=== PATIENT | female | born 1965 | race Caucasian/White ===

== ENCOUNTER 2023-09-29 08:16 | Day surgery (SDC) | payer OTHER ==
[2023-09-29] MEDS ORDERED: Depo-Medrol 40 MG/ML IM ONE ×2 (08:17)
[2023-09-29] MEDS ORDERED: DIPRIVAN 200 MG/20 ML IV ONE (10:31)
--- NOTE | 2023-09-29 11:56 | XRAY ---
Indication: Left knee injection. Intraoperative fluoroscopy provided for 13 seconds. Single digital spot image submitted for interpretation demonstrates needle tip projecting over the left femur intercondylar notch. Small amount of contrast injected for needle tip placement. Correlate with intraoperative findings/report.
--- NOTE | 2023-09-29 11:56 | XRAY ---
Indication: Right knee injection. Intraoperative fluoroscopy provided for 14 seconds. Single digital spot image submitted for interpretation demonstrates needle tip projecting over the right femur intercondylar notch. Small amount of contrast injected for needle tip placement. Correlate with intraoperative findings/report.
[2023-09-29] MEDS ORDERED: Lactated Ringers 1,000 ML IV ONE (12:13)
--- NOTE | 2023-09-29 12:54 | XRAY ---
14 seconds of fluoroscopy was used in surgery for a right intra-articular knee injection.
--- NOTE | 2023-09-29 12:55 | XRAY ---
13 seconds of fluoroscopy was used in surgery for a left intra-articular knee injection.
== END 2023-09-29 11:05 | disposition home or self-care (01) ==
LOC: SDC-PAIN 08:16
PROVIDERS: ATTEND Psychiatry & Neurology Pain Medicine
DX: M17.0 Bilateral primary osteoarthritis of knee (principal); E11.9 Type 2 diabetes mellitus without complications
CPT/HCPCS: 20610; 73560; 77002; 82947; J1010; J2704; Q9966

== ENCOUNTER 2024-02-16 07:20 | Day surgery (SDC) | payer OTHER ==
[2024-02-16] MEDS ORDERED: Xylocaine-Mpf 2% 5 Ml Vial IJ ONE (07:21)
[2024-02-16] MEDS ORDERED: DIPRIVAN 200 MG/20 ML IV ONE (08:58)
--- NOTE | 2024-02-16 10:14 | XRAY ---
Indication: Bilateral L4-S1 MBB. Intraoperative fluoroscopy provided for 15 seconds. Single digital spot image submitted for interpretation demonstrates posterior needle tips projecting over the expected left and right L4-S1 nerve root. Correlate with intraoperative findings/report.
--- NOTE | 2024-02-16 11:46 | XRAY ---
15 seconds of fluoroscopy was used in surgery for a bilateral L4-S1 MBB.
== END 2024-02-16 09:30 | disposition home or self-care (01) ==
LOC: SDC-PAIN 07:20
PROVIDERS: ATTEND Psychiatry & Neurology Pain Medicine
DX: M47.816 Spondylosis without myelopathy or radiculopathy, lumbar region (principal); E11.9 Type 2 diabetes mellitus without complications
CPT/HCPCS: 72020; 77002; 82947; J2704

== ENCOUNTER 2024-04-20 08:01 | Day surgery (SDC) | payer OTHER ==
[2024-04-20] MEDS ORDERED: LIDOCAINE HCL 1% 50 MG/5 ML VL IJ ONE (08:02)
[2024-04-20] MEDS ORDERED: methylPREDNISolone acetate IM ONE (08:02)
[2024-04-20] MEDS ORDERED: BUPIVACAINE 0.5% VIAL IJ ONE (08:02)
[2024-04-20] MEDS ORDERED: propofoL IV ONE ×2 (09:43→09:52)
--- NOTE | 2024-04-20 10:09 | XRAY ---
Indication: Bilateral L4-S1 MBB. Intraoperative fluoroscopy provided for 10 seconds. Single digital spot image submitted for interpretation demonstrates posterior needle tips projecting over the expected left and right L4-S1 nerve roots. Correlate with intraoperative findings/report.
--- NOTE | 2024-04-20 10:13 | XRAY ---
10 seconds of fluoroscopy was used in surgery for a bilateral L4-S1 MBB.
== END 2024-04-20 10:17 | disposition home or self-care (01) ==
LOC: SDC-PAIN 08:01
PROVIDERS: ATTEND Psychiatry & Neurology Pain Medicine
DX: M47.816 Spondylosis without myelopathy or radiculopathy, lumbar region (principal); E11.9 Type 2 diabetes mellitus without complications
CPT/HCPCS: 64493; 64494; 72020; 77002; 82947; J1010; J2704

== ENCOUNTER 2024-06-07 06:43 | Day surgery (SDC) | payer OTHER ==
[2024-06-07] MEDS ORDERED: Lactated Ringers 500 ML IV ONE (07:13)
[2024-06-07] MEDS ORDERED: propofoL IV ONE ×2 (07:52→09:30)
[2024-06-07 07:54] LABS: Absolute Neutrophil Ct (ANC) 2.52 x10^3/uL (1.56-6.13); BASOPHIL % 0.5 % (0.1-1.2); Basophil (Absolute #) 0.02 x10^3/uL (0.01-0.08); Eosinophil (Absolute #) 0.04 x10^3/uL (0.04-0.36); Hematocrit 43.9 % (34.1-44.9); Hemoglobin 15.8 g/dL (11.2-15.7); IMMATURE GRAN # 0.01 x10^3u/L (0.001-0.031); IMMATURE GRAN % 0.3 % (0.001-0.429); Lymphocyte (Absolute #) 0.96 x10^3/uL (1.18-3.74); Lymphocytes % 24.1 % (19.3-51.7); Mean Cell Volume 88.9 fL (79.4-94.8); Mean Platelet Volume 12.1 fL (9.4-12.3); Monocyte (Absolute #) 0.44 x10^3/uL (0.24-0.86); Neutrophil % 63.1 % (34.0-71.1); Platelet Count 91 x10^3/uL (182-369); Red Blood Count 4.94 x10^6/uL (3.93-5.22); Red Cell Distribution Width 13.4 % (11.7-14.4)
--- NOTE | 2024-06-07 10:35 | XRAY ---
Indication: Left L4-S1 RFA. Intraoperative fluoroscopy provided for 17 seconds. 6 digital spot image submitted for interpretation demonstrates posterior needle tips project over expected left L4-S1 nerve roots. Correlate with intraoperative findings/report.
--- NOTE | 2024-06-07 10:39 | XRAY ---
17 seconds of fluoroscopy was used in surgery for a left L4-S1 RFA.
== END 2024-06-07 09:49 | disposition home or self-care (01) ==
LOC: SDC-PAIN 06:43
PROVIDERS: ATTEND Psychiatry & Neurology Pain Medicine
DX: M47.816 Spondylosis without myelopathy or radiculopathy, lumbar region (principal); E11.9 Type 2 diabetes mellitus without complications
CPT/HCPCS: 36415; 64635; 64636; 72100; 77002; 82947; 85025; J2704

== ENCOUNTER 2024-08-09 07:10 | Day surgery (SDC) | payer OTHER ==
[2024-08-09] MEDS ORDERED: LIDOCAINE HCL 1% AMPUL 5 ML IJ ONE (07:11)
[2024-08-09] MEDS ORDERED: BUPIVACAINE 0.5% VIAL IJ ONE (07:11)
[2024-08-09] MEDS ORDERED: Depo-Medrol 40 MG/ML IM ONE (07:11)
[2024-08-09] MEDS ORDERED: propofoL IV ONE (09:08)
[2024-08-09] MEDS ORDERED: Lactated Ringers 1,000 ML IV ONE (09:51)
--- NOTE | 2024-08-09 10:34 | XRAY ---
Indication: Right L4-S1 RFA. Intraoperative fluoroscopy provided for 23 seconds. 5 digital spot image submitted for interpretation demonstrates posterior needle tips projecting over expected right L4-S1 nerve roots. Correlate with intraoperative findings/report.
--- NOTE | 2024-08-09 10:38 | XRAY ---
23 seconds of fluoroscopy was used in surgery for a right L4-S1 RFA.
== END 2024-08-09 09:30 | disposition home or self-care (01) ==
LOC: SDC-PAIN 07:10
PROVIDERS: ATTEND Psychiatry & Neurology Pain Medicine
DX: M47.817 Spondylosis without myelopathy or radiculopathy, lumbosacral region (principal); E11.9 Type 2 diabetes mellitus without complications
CPT/HCPCS: 64635; 64636; 72100; 82947; J2704

== ENCOUNTER 2025-02-21 08:00 | Day surgery (SDC) | payer OTHER ==
[2025-02-21] MEDS ORDERED: LIDOCAINE HCL 2% 100 MG/5 ML IJ ONE (08:01)
[2025-02-21] MEDS ORDERED: propofoL IV ONE (09:44)
--- NOTE | 2025-02-21 10:24 | XRAY ---
Indication: Left C2-C4 MBB. Intraoperative fluoroscopy provided for 18 seconds. 2 digital spot images submitted for interpretation demonstrates posterior needle tips projecting over expected left C2-C4 nerve roots. Correlate with intraoperative findings/report.
[2025-02-21] MEDS ORDERED: Lactated Ringers 1,000 ML IV ONE (11:26)
--- NOTE | 2025-02-21 12:00 | XRAY ---
18 seconds of fluoroscopy was used in surgery for a left C2-C4 MBB.
== END 2025-02-21 10:17 | disposition home or self-care (01) ==
LOC: SDC-PAIN 08:00
PROVIDERS: ATTEND Psychiatry & Neurology Pain Medicine
DX: M47.812 Spondylosis without myelopathy or radiculopathy, cervical region (principal); E11.9 Type 2 diabetes mellitus without complications